=== PATIENT | female | born 1980 | race American Indian/Alaskan Native ===

== ENCOUNTER 2017-04-16 13:37 | Emergency (ER) | payer MEDICAID, OTHER ==
--- NOTE | 2017-04-16 14:41 | Emergency Department Report ---
Chief Complaint: Abdominal Pain Stated Complaint: ABDOMINAL PAIN Time Seen by Provider: 04/16/17 14:05 - HPI History of Present Illness: Patient reports that she's been having abdominal pain and nausea without any vomiting. She denies any vomiting. She says she had about 6 diarrhea stools today. She said after diarrhea started she started having some dizziness and headache. Pain to abdomen is 8 out of 10 to her lower abdomen. She says she's had a bladder infection in the past and it feels like it but she is not having any urinary burning frequency or urgency. Last menstrual period was 04/09/2017 ,.she said symptoms started at 5 AM today. Denies any vaginal bleeding. - ROS Review of Systems: All systems are negative unless stated in HPI above - Exam Vital Signs: Vital Signs 04/16/17 13:56 Temperature 98.2 F Pulse Rate 83 Respiratory 18 Rate Blood Pressure 114/69 O2 Sat by Pulse 100 Oximetry Physical Exam: This is a 36-year-old female well-nourished well-developed in no acute distress Abdomen: Mild tenderness to lower quadrant, no guarding or rebound tenderness. Positive bowel sounds in all quadrants. No acute abdomen. MSE screening note: Focused history and physical exam performed. Due to findings the following was ordered: ED Medical Decision Making - Medical Decision Making MDM: Patient screened by provider in triage area. Appropriate protocol initiated and patient to be seen in main ED by Dr. MCKEON Disposition for MSE Condition: Stable Instructions: Abdominal Pain (ED)
[2017-04-16 15:09] LABS: Alanine Aminotransferase 12 units/L (7-56); Albumin 4.1 g/dL (3.9-5); Albumin/Globulin Ratio 1.5 %; Alkaline Phosphatase 116 units/L (35-129); Anion Gap 17 mmol/L; BUN/Creatinine Ratio 22; Bilirubin,Total < 0.20 mg/dL (0.1-1.2); Blood Urea Nitrogen 11 mg/dL (7-17); Calcium 9.3 mg/dL (8.4-10.2); Carbon Dioxide 24 mmol/L (22-30); Chloride 104.4 mmol/L (98-107); Glucose 92 mg/dL (65-100); Lipase 28 units/L (13-60); Potassium 4.3 mmol/L (3.6-5.0); Sodium 141 mmol/L (137-145); Total Protein 6.9 g/dL (6.3-8.2)
[2017-04-16 15:14] LABS: Basophils % (Auto) 0.6 % (0.0-1.8); Eosinophils % (Auto) 0.7 % (0.0-4.3); Mean Corpuscular HGB Conc 30 % (30-34); Platelet Count 482 K/mm3 (140-440); Red Blood Count 4.44 M/mm3 (3.65-5.03); White Blood Count 10.3 K/mm3 (4.5-11.0)
[2017-04-16 15:47] LABS: Hematocrit 30.7 % (30.3-42.9); Hemoglobin 9.2 gm/dl (10.1-14.3); Mean Corpuscular Volume 69 fl (79-97)
[2017-04-16 15:48] LABS: Mean Corpuscular Hemoglobin 21 pg (28-32); Red Cell Distribution Width 20.3 % (13.2-15.2)
[2017-04-16 16:18] LABS: Bacteria,Urine 2+ /HPF (Negative); Bilirubin,Urine NEG (Negative); Blood,Urine SM (Negative); Ketones,Urine NEG (Negative); Leukocyte Esterase,Urine NEG (Negative); Mucus,Urine FEW /HPF; Nitrite,Urine POS (Negative); Protein,Urine <15 mg/dL mg/dL (Negative); Urobilinogen,Urine < 2.0 mg/dL (<2.0)
[2017-04-16] MEDS ORDERED: TYLENOL ONE (22:46)
--- NOTE | 2017-04-16 23:01 | Emergency Department Report ---
ED Abdominal Pain HPI - General Chief Complaint: Abdominal Pain Stated Complaint: ABDOMINAL PAIN Time Seen by Provider: 04/16/17 14:05 Source: patient Mode of arrival: Ambulatory Limitations: No Limitations - History of Present Illness Initial Comments: 36 yoFEMALE WITH H/O NAUSEA,ABDOMINAL PAIN, DIARRHEA X6 EPISODES SINCE 3 AM THIS MORNING. HER PAIN IS DIFFUSE AND ESPECIALLY PAINFUL AROUNG HER UMBILICUS. SHE DENIES FEVER, CHILLS AND NO VOMITING. MD Complaint: abdominal pain -: Gradual (0300 THIS AM) Location: diffuse, periumbilical (MORE PAINFUL) Severity: moderate Severity scale (0 -10): 4 Quality: cramping, aching Consistency: intermittent Improves With: nothing Worsens With: nothing Associated Symptoms: vomiting, chills - Related Data Previous Rx's Medication Instructions Recorded Last Taken Type Acetaminophen/Codeine [Tylenol #3] 1 tab PO Q6H PRN #15 tab 06/11/15 Unknown Rx Nitrofurantoin Rhea/M-Cryst 100 mg PO Q12HR #14 capsule 04/17/17 Unknown Rx [Macrobid CAP] metroNIDAZOLE [Flagyl TAB] 500 mg PO Q12HR #14 tab 04/17/17 Unknown Rx oxyCODONE /ACETAMINOPHEN [Percocet 2 tab PO Q6HR PRN #14 tablet 04/17/17 Unknown Rx 5/325] Allergies Allergy/AdvReac Type Severity Reaction Status Date / Time No Known Allergies Allergy Unverified 06/10/15 18:37 ED Review of Systems ROS: Stated complaint: ABDOMINAL PAIN Other details as noted in HPI Constitutional: denies: chills, fever Eyes: denies: eye pain, eye discharge, vision change ENT: denies: ear pain, throat pain Respiratory: denies: cough, shortness of breath, wheezing Cardiovascular: denies: chest pain, palpitations Endocrine: no symptoms reported Gastrointestinal: denies: abdominal pain, nausea, diarrhea Genitourinary: denies: urgency, dysuria, discharge Musculoskeletal: denies: back pain, joint swelling, arthralgia Skin: denies: rash, lesions Neurological: denies: headache, weakness, paresthesias Psychiatric: denies: anxiety, depression Hematological/Lymphatic: denies: easy bleeding, easy bruising ED Past Medical Hx - Past Medical History Previous Medical History?: No - Surgical History Additional Surgical History: x2 - Social History Smoking Status: Current Every Day Smoker Substance Use Type: None - Medications Home Medications: Home Medications Medication Instructions Recorded Confirmed Last Taken Type Acetaminophen/Codeine [Tylenol #3] 1 tab PO Q6H PRN #15 tab 06/11/15 Unknown Rx Nitrofurantoin Rhea/M-Cryst 100 mg PO Q12HR #14 capsule 04/17/17 Unknown Rx [Macrobid CAP] metroNIDAZOLE [Flagyl TAB] 500 mg PO Q12HR #14 tab 04/17/17 Unknown Rx oxyCODONE /ACETAMINOPHEN [Percocet 2 tab PO Q6HR PRN #14 tablet 04/17/17 Unknown Rx 5/325] ED Physical Exam - General Limitations: No Limitations General appearance: alert, in no apparent distress - Head Head exam: Present: atraumatic, normocephalic - Eye Eye exam: Present: normal appearance - ENT ENT exam: Present: mucous membranes moist - Neck Neck exam: Present: normal inspection - Respiratory Respiratory exam: Present: normal lung sounds bilaterally. Absent: respiratory distress - Cardiovascular Cardiovascular Exam: Present: regular rate, normal rhythm. Absent: systolic murmur, diastolic murmur, rubs, gallop - GI/Abdominal GI/Abdominal exam: Present: soft, tenderness (FDIFFUSE ,MORE PAINFUL IN UMILICUS ), guarding, normal bowel sounds. Absent: rebound, rigid - Rectal Rectal exam: Present: deferred - External exam: Present: normal external exam Speculum exam: Present: vaginal discharge (YELLOW, LARGE AMOUNT) Bi-manual exam: Present: uterine tenderness. Absent: cervical motion tendernes , adnexal tenderness, adnexal mass - Extremities Exam Extremities exam: Present: normal inspection, full ROM - Back Exam Back exam: Present: normal inspection, full ROM - Neurological Exam Neurological exam: Present: alert, oriented X3, CN II-XII intact - Psychiatric Psychiatric exam: Present: normal affect, normal mood - Skin Skin exam: Present: warm, dry, intact, normal color. Absent: rash ED Course Vital Signs 04/16/17 04/16/17 04/16/17 13:56 21:58 22:14 Temperature 98.2 F 97.9 F Pulse Rate 83 95 H Respiratory 18 18 18 Rate Blood Pressure 114/69 Blood Pressure 114/72 [Left] O2 Sat by Pulse 100 100 100 Oximetry ED Medical Decision Making - Lab Data Result diagrams: 04/16/17 14:36 04/16/17 14:36 - Medical Decision Making PT DOES NOT WISH TO WAIT FOR CT OF THE ABDOMEN BUT WANTS TO LEAVE AMA. I WILL TREAT HER FOR GC/CT, UTI, AND BV - Differential Diagnosis PID,VAGINITIS,GC/CT, APPENDICITIS,UTI Critical care attestation.: If time is entered above; I have spent that time in minutes in the direct care of this critically ill patient, excluding procedure time. ED Disposition Clinical Impression: Bacterial vaginosis, Dehydration UTI (urinary tract infection) Qualifiers: Urinary tract infection type: acute cystitis Hematuria presence: without hematuria Qualified Code(s): N30.00 - Acute cystitis without hematuria Abdominal pain Qualifiers: Abdominal location: unspecified location Qualified Code(s): R10.9 - Unspecified abdominal pain Vaginitis Qualifiers: Chronicity: acute Qualified Code(s): N76.0 - Acute vaginitis Anemia Qualifiers: Anemia type: unspecified type Qualified Code(s): D64.9 - Anemia, unspecified Disposition: TO HOME OR SELFCARE Is pt being admited?: No Does the pt Need Aspirin: No Condition: Stable Instructions: Bacterial Vaginosis (ED), Dehydration (ED), Urinary Tract Infection in Women (ED), Vaginitis (ED), Abdominal Pain (ED) Additional Instructions: PLEASE FOLLOW UP WITH YOUR DR TOMORROW FOR CT OF THE CHEST. RETURN TO THE EMERGENCY DEPT FOR ANY REASON. Prescriptions: metroNIDAZOLE [Flagyl TAB] 500 mg PO Q12HR #14 tab Nitrofurantoin Rhea/M-Cryst [Macrobid CAP] 100 mg PO Q12HR #14 capsule oxyCODONE /ACETAMINOPHEN [Percocet 5/325] 2 tab PO Q6HR PRN #14 tablet PRN Reason: Pain Referrals: PRIMARY CARE,MD [Primary Care Provider] - 3-5 Days Forms: STI Treatment and Prevention Time of Disposition: 01:
[2017-04-16] MEDS ORDERED: NACL ONE (23:30)
[2017-04-17] MEDS ORDERED: ZITHROMAX PO ONE (01:05)
[2017-04-17] MEDS ORDERED: XYLOCAINE 1% MPF 5 mL INFILTRATI ONE (01:05)
[2017-04-17] MEDS ORDERED: ROCEPHIN IM ONE (01:05)
[2017-04-17] MEDS ORDERED: NACL 0.9% 1000 ML 1,000 ML IV ONE (01:29)
--- NOTE | 2017-04-17 01:34 | Cat Scan Report ---
FINAL REPORT PROCEDURE: CT ABDOMEN PELVIS W CON TECHNIQUE: Computerized axial tomography of the abdomen and pelvis was performed after the IV injection of iodinated nonionic contrast. HISTORY: ABD, PERIUMBILICAL ESPECIALLY, ? APPENDICITIS COMPARISON: No prior studies are available for comparison. FINDINGS: Visualized lower thorax: Images of the lower abdomen demonstrate partially imaged enlarged left hilar lymph node measuring 2.3 centimeters. There are no visible infiltrates in the lungs.. Liver: Normal size and attenuation. Spleen: Normal size and attenuation. Gallbladder and biliary system: Normal. Pancreas: Normal. Adrenals: Normal. Kidneys: Normal. GI tract: There is no bowel obstruction, colitis or enteritis. The appendix is normal.. Lymph nodes and mesentery: There are borderline prominent mesenteric lymph nodes which are nonspecific.. Vasculature: Normal. Bladder: Normal. Reproductive organs: Uterus and ovaries are unremarkable.. Peritoneum: There is minimal nonspecific free pelvic fluid. There is no free air, there is no abscess.. Musculoskeletal structures: No significant abnormality. Other: There is a tiny incidental umbilical hernia defect containing fat only.. IMPRESSION: Images of the lower abdomen demonstrate partially imaged enlarged left hilar lymph node measuring 2.3 centimeters. There are no visible infiltrates in the lungs.. There is no bowel obstruction, colitis or enteritis. The appendix is normal.. There are borderline prominent mesenteric lymph nodes which are nonspecific.. There is minimal nonspecific free pelvic fluid. There is no free air, there is no abscess.. There is a tiny incidental umbilical hernia defect containing fat only..
[2017-04-17] MEDS ORDERED: TORADOL IV ONE (02:20)
[2017-04-17] MEDS ORDERED: TORADOL ONE (02:23)
[2017-04-17] MEDS ORDERED: ZOFRAN ONE (04:06)
[2017-04-17] MEDS ORDERED: ZOFRAN IV ONE (04:10)
[2017-04-17 04:50] VITALS: BP 94/54
[2017-04-17] MEDS ORDERED: LEVAQUIN 750MG/150ML 750 MG/150 ML BAG IV SCH (10:00)
== END 2017-04-17 04:42 | disposition home or self-care (01) ==
LOC: ED 13:37
DX: N30.00 Acute cystitis without hematuria (principal); N76.0 Acute vaginitis; D64.9 Anemia, unspecified; E86.0 Dehydration; F17.200 Nicotine dependence, unspecified, uncomplicated
CPT/HCPCS: 36415; 74177; 80053; 81001; 83690; 84702; 84703; 85025; 86850; 86900; 86901; 87210; 87591; 96365; 96372; 96375; 99285; J0696; J1885; J2405; J7030; Q9967

== ENCOUNTER 2018-08-25 11:08 | Emergency (ER) | payer OTHER ==
[2018-08-25] MEDS ORDERED: NACL 0.9% 1000 ML 1,000 ML IV ONE (11:31)
[2018-08-25] MEDS ORDERED: ZOFRAN IV ONE (11:53)
[2018-08-25] MEDS ORDERED: DILAUDID IV ONE ×2 (11:53→15:04)
--- NOTE | 2018-08-25 11:57 | Emergency Department Report ---
ED Abdominal Pain HPI - General Chief Complaint: Abdominal Pain Stated Complaint: PAIN Time Seen by Provider: 08/25/18 11:42 Source: EMS Mode of arrival: Stretcher Limitations: No Limitations - History of Present Illness Initial Comments: 37-year-old female presents to ED with left lower quadrant pain 1 hour. Patient has history of stage IV lung cancer. Patient is currently on chemotherapy. The patient reports nausea, denies vomiting, diarrhea, con stipation. 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 Scheduled to begin radiation therapy in 2 days due to the discomfort from that associated pain. Patient states the adrenal gland has caused her to have left back pain before, however never abdominal pain. Patient denies urinary symptoms. Currently on Eliquis for PE. MD Complaint: abdominal pain -: This morning Location: LLQ Radiation: epigastric Severity: severe Severity scale (0 -10): 8 Quality: sharp Consistency: constant Improves With: nothing Worsens With: movement Associated Symptoms: nausea. denies: vomiting, diarrhea, fever, dysuria, hematuria - Related Data Previous Rx's Medication Instructions Recorded Last Taken Type Acetaminophen/Codeine [Tylenol #3] 1 tab PO Q6H PRN #15 tab 06/11/15 Unknown Rx Nitrofurantoin [place]/M-Cryst 100 mg PO Q12HR #14 capsule 04/17/17 Unknown Rx [Macrobid CAP] metroNIDAZOLE [Flagyl TAB] 500 mg PO Q12HR #14 tab 04/17/17 Unknown Rx oxyCODONE /ACETAMINOPHEN [Percocet 2 tab PO Q6HR PRN #14 tablet 04/17/17 Unknown Rx 5/325] Allergies Allergy/AdvReac Type Severity Reaction Status Date / Time morphine Allergy Intermediate Hives Verified 08/25/18 11:45 RASH AdvReac Intermediate Rash Uncoded 08/25/18 13:25 ED Review of Systems ROS: Stated complaint: PAIN Other details as noted in HPI Comment: All other systems reviewed and negative Constitutional: denies: chills, fever Respiratory: denies: shortness of breath Cardiovascular: denies: chest pain Gastrointestinal: abdominal pain, nausea. denies: vomiting, diarrhea, constipation Genitourinary: denies: dysuria, frequency, hematuria Musculoskeletal: back pain ED Past Medical Hx - Past Medical History Hx of Cancer: Yes (Lung cancer) - Surgical History Additional Surgical History: x2 - Social History Smoking Status: Unknown if ever smoked - Medications Home Medications: Home Medications Medication Instructions Recorded Confirmed Last Taken Type Acetaminophen/Codeine [Tylenol #3] 1 tab PO Q6H PRN #15 tab 06/11/15 Unknown Rx Nitrofurantoin [place]/M-Cryst 100 mg PO Q12HR #14 capsule 04/17/17 Unknown Rx [Macrobid CAP] metroNIDAZOLE [Flagyl TAB] 500 mg PO Q12HR #14 tab 04/17/17 Unknown Rx oxyCODONE /ACETAMINOPHEN [Percocet 2 tab PO Q6HR PRN #14 tablet 04/17/17 U nknown Rx 5/325] ED Physical Exam - General Limitations: No Limitations General appearance: alert, other (appears in obvious pain) - Head Head exam: Present: atraumatic, normocephalic - Eye Eye exam: Present: normal appearance - ENT ENT exam: Present: mucous membranes moist - Neck Neck exam: Present: normal inspection - Respiratory Respiratory exam: Present: normal lung sounds bilaterally. Absent: respiratory distress - Cardiovascular Cardiovascular Exam: Present: regular rate, normal rhythm - GI/Abdominal GI/Abdominal exam: Present: soft, tenderness (epigastric, LUQ, LLQ tenderness on exam). Absent: distended - Extremities Exam Extremities exam: Present: normal inspection - Back Exam Back exam: Present: CVA tenderness (L) - Neurological Exam Neurological exam: Present: alert, oriented X3 - Psychiatric Psychiatric exam: Present: normal affect, normal mood - Skin Skin exam: Present: warm, dry, intact, normal color ED Course Vital Signs 08/25/18 08/25/18 11:24 11:38 Temperature 98.6 F Pulse Rate 81 Respiratory 18 18 Rate Blood Pressure 97/49 ED Medical Decision Making - Lab Data Result diagrams: 08/25/18 12:12 08/25/18 12:12 - Radiology Data Radiology results: report reviewed, image reviewed - Medical Decision Making - CT shows airspace disease, likely due to her lung cancer, since afebrile and no elevation in WBCs - CT shows adrenal mass, which is known to be present - no other acute abnormalities noted on CT - BP on the low side, 90s/50s; pt reports her BP runs low normally, this is likely true given pt is not tachycardic and does not take any beta blockers - pt to f/u w/ oncologist in 2 days to begin radiation - states has oxycontin at home, but does not use often; advised pt to take as needed for her pain - pt feeling much better, no need for admission at this time - return precautions given - Differential Diagnosis diverticulitis, UTI, kidney stone, adrenal tumor Critical care attestation.: If time is entered above; I have spent that time in minutes in the direct care of this critically ill patient, excluding procedure time. ED Disposition Clinical Impression: Abdominal pain Disposition: DC-01 TO HOME OR SELFCARE Is pt being admited?: No Condition: Stable Instructions: Abdominal Pain (ED) Referrals: PRIMARY CARE, [Referring] - [facility] Time of Disposition: 15:29
[2018-08-25 12:50] LABS: Basophils # (Auto) 0.1 K/mm3 (0.0-0.1); Basophils % (Auto) 1.3 % (0.0-1.8); Eosinophils # (Auto) 0.2 K/mm3 (0.0-0.4); Eosinophils % (Auto) 1.7 % (0.0-4.3); Hematocrit 30.8 % (30.3-42.9); Hemoglobin 10.5 gm/dl (10.1-14.3); Lymphocytes # (Auto) 1.5 K/mm3 (1.2-5.4); Lymphocytes % (Auto) 15.3 % (13.4-35.0); Mean Corpuscular HGB Conc 34 % (30-34); Mean Corpuscular Volume 89 fl (79-97); Monocytes # (Auto) 0.5 K/mm3 (0.0-0.8); Monocytes % (Auto) 5.6 % (0.0-7.3); Platelet Count 365 K/mm3 (140-440); Red Blood Count 3.45 M/mm3 (3.65-5.03); Red Cell Distribution Width 16.2 % (13.2-15.2)
[2018-08-25] MEDS ORDERED: TORADOL IV ONE (13:06)
[2018-08-25 13:16] LABS: Alanine Aminotransferase 8 units/L (7-56); Albumin 3.5 g/dL (3.9-5); BUN/Creatinine Ratio 18; Blood Urea Nitrogen 11 mg/dL (7-17); Calcium 8.6 mg/dL (8.4-10.2); Hemolysis Index 29
[2018-08-25 13:45] LABS: Bacteria,Urine 1+ /HPF (Negative); Bilirubin,Urine NEG (Negative); Blood,Urine LG (Negative); Color,Urine Yellow (Yellow); Protein,Urine <15 mg/dL mg/dL (Negative)
[2018-08-25 13:49] LABS: HCG Qualitative,Urine Negative (Negative)
--- NOTE | 2018-08-25 15:18 | Cat Scan Report ---
PROCEDURE: CT ABDOMEN PELVIS W CON TECHNIQUE: Axial images obtained and pelvis following intravenous administration of contrast. Sagitt al and coronal reformatted images obtained. HISTORY: LLQ pain COMPARISONS: None FINDINGS: Airspace disease noted right middle lobe and left lower lobe. Incompletely evaluated. No sizable effu chon. There is a small hiatal hernia. There is splenomegaly. Liver, spleen and pancreas are unremarkable. Gallbladder is contracted. No radiopaque calculus. The right adrenal gland is unremarkable. There is a left adrenal mass measuring 4.7 x 4.3 cm. Indeterminate Hounsfield units with contrast. Kidneys demonstrate normal enhancement. Normal contour. No calculus. No hydronephrosis. Ureters are n ondilated. Anteverted uterus. No adnexal mass. Bladder unremarkable. Aorta normal caliber. No significant atherosclerotic calcification. Portal vein, celiac and superior mesenteric arteries are patent. No retroperitoneal adenopathy No bowel obstruction. Moderate colonic stool. No diverticulosis. No diverticulitis. Normal appendix. No free air. No free fluid. Omentum and mesentery unremarkable. Evidence of prior surgery. Small cristhian l staple line noted anterior right abdomen. Small fat-containing umbilical hernia. No acute bony abnormality. IMPRESSION: Right middle lobe and left lower lobe airspace disease. Finding incompletely imaged. Chronicity unkno wn. Correlate for evidence of pneumonia Left adrenal mass. Mass is indeterminate with contrast. Complete evaluation with noncontrast imaging recommended. Differential includes adenoma. Confirmation required. No bowel obstruction. Colonic stool suggesting constipation No free air. No free fluid. No acute inflammatory change. Normal appendix No hydronephrosis. No renal or ureteral calculus. This document is electronically signed by Cayden Callaway MD., August 25 2018 03:16:42 PM ET
[2018-08-25 15:58] VITALS: BP 93/57
== END 2018-08-25 15:56 | disposition home or self-care (01) ==
LOC: ED 11:08
DX: R10.32 Left lower quadrant pain (principal); R11.0 Nausea; Z88.6 Allergy status to analgesic agent; Z85.118 Personal history of other malignant neoplasm of bronchus and lung
CPT/HCPCS: 36415; 74177; 80053; 81001; 81025; 83690; 85025; 96374; 96375; 96376; 99284; J1170; J1885; J2405; J7030; Q9967